=== PATIENT | female | born 1935 | race Caucasian/White ===

== ENCOUNTER 2018-01-03 12:25 | Inpatient (IN) | payer OTHER ==
[~2018-01-03] VITALS: Ht 167.6 cm; Wt 53.1 kg
[2018-01-23] MEDS ORDERED: XANAX XR0.5 MG (12:57)
[2018-01-23] MEDS ORDERED: INTESTINEX680 M1 PO (12:58)
[2018-01-23] MEDS ORDERED: PAROXETINE PO (12:58)
[2018-01-23] MEDS ORDERED: OMEPRAZOLE20 MG PO (12:59)
[2018-01-23] MEDS ORDERED: PEPCID20 MG PO (12:59)
[2018-02-02] MEDS ORDERED: OXYC1TAB9 PO (13:53)
== END 2018-02-02 15:45 | disposition home or self-care (01) | DRG 331 ==
LOC: O/R 01-30 11:04 → SURH 01-30 11:04
PROVIDERS: Surgery
PROC: 07TC4ZZ Resection of Pelvis Lymphatic, Percutaneous Endoscopic Approach (ICD-10-PCS; 2018-01-30)
PROC: 0DTF4ZZ Resection of Right Large Intestine, Percutaneous Endoscopic Approach (ICD-10-PCS; principal; 2018-01-30 17:15)
DX: D12.2 Benign neoplasm of ascending colon (principal)